=== PATIENT | female | born 1960 | race Caucasian/White ===

== ENCOUNTER 2021-04-01 22:35 | Emergency (ER) | payer MEDICARE ==
[~2021-04-01 22:35] MED LIST: ATORVASTATIN CA20 MG PO; BENTYL 20MG TAB20 MG PO; DULOXETINE HCL20 MG PO; EUTHYROX25 MCG PO; MOTION SICKNESS25 M3 PO; MULTIPLE VITAM1 EAC2 PO; NEXIUM40 MG PO; PEPCID20 MG PO; PEPCID40 MG PO; PERCOCET 5/325 T1 EA PO; POTASSIUM99 M1 PO; ROXICODONE TAB 55 MG GT; VITAMIN E400 UNI1 PO
[2021-04-01 23:38] LABS: HEMOGLOBIN 14.8 gm/dl (12.3-15.3); RED BLOOD COUNT 4.61 M/UL (4.00-5.10); WHITE BLOOD COUNT 4.6 K/UL (4.5-11.0)
[2021-04-01 23:59] LABS: BUN/CREATININE RATIO 13 (0-10)
[2021-04-02 02:28] LABS: BORDETELLA PARAPERTUSSIS Not Detected (Not Detectd); BORDETELLA PERTUSSIS Not Detected (Not Detectd); CHLAMYDIA PNEUMONIAE Not Detected (Not Detectd); CORONAVIRUS HKU1 Not Detected (Not Detectd); CORONAVIRUS NL63 Not Detected (Not Detectd); CORONAVIRUS OC43 Not Detected (Not Detectd); CORONOAVIRUS 229E Not Detected (Not Detectd); HUMAN METAPNEUMOVIRUS Not Detected (Not Detectd); INFLUENZA A Not Detected (Not Detectd); INFLUENZA B Not Detected (Not Detectd); MYCOPLASMA PNEUMONIAE Not Detected (Not Detectd); PARAINFLUENZA VIRUS 1 Not Detected (Not Detectd); PARAINFLUENZA VIRUS 2 Not Detected (Not Detectd); PARAINFLUENZA VIRUS 3 Not Detected (Not Detectd); PARAINFLUENZA VIRUS 4 Not Detected (Not Detectd); RESPIRATORY SYNCYTIAL VIRUS Not Detected (Not Detectd)
[2021-04-02 03:51] LABS: SARS-CoV-2 NOT DETECTED (Not Detectd)
[2021-04-02 03:52] LABS: HUMAN RHINOVIRUS/ENTEROVIRUS DETECTED (Not Detectd)
[2021-04-02] MEDS ORDERED: PHENERGAN 25 MG25 M1 PO (04:05)
== END 2021-04-02 04:20 | disposition home or self-care (01) ==
LOC: ER1 22:35
PROVIDERS: Nurse Practitioner
DX: R11.2 Nausea with vomiting, unspecified (principal); R19.7 Diarrhea, unspecified; Z20.822 Contact with and (suspected) exposure to COVID-19
CPT/HCPCS: 80053; 81001; 83690; 85025; 87633; 96372; 96374; 99284; J2060; J2550; J7120; U0002

== ENCOUNTER → 2021-04-05 | Outpatient (CLI) | payer MEDICARE ==
[~2021-04-05] MED LIST changes: +PHENERGAN 25 MG25 M1 PO
== END ==
LOC: KOH-I 09:19
DX: R10.84 Generalized abdominal pain (principal)
CPT/HCPCS: 74150

== ENCOUNTER → 2021-05-03 | Day surgery (SDC) | payer MEDICARE ==
[~2021-05-03] MED LIST changes: +BALANCED B-5050 MCG PO; +VITAMIN D325 MC6 PO
== END | disposition home or self-care (01) ==
LOC: OR 07:37
DX: K31.9 Disease of stomach and duodenum, unspecified (principal); K29.60 Other gastritis without bleeding; K21.9 Gastro-esophageal reflux disease without esophagitis; R63.4 Abnormal weight loss; R07.89 Other chest pain; M17.10 Unilateral primary osteoarthritis, unspecified knee; E78.5 Hyperlipidemia, unspecified; E03.9 Hypothyroidism, unspecified; F17.200 Nicotine dependence, unspecified, uncomplicated; Z90.710 Acquired absence of both cervix and uterus; Z96.659 Presence of unspecified artificial knee joint; Z20.822 Contact with and (suspected) exposure to COVID-19
CPT/HCPCS: 82962; J2001; J2704; J7120